=== PATIENT | female | born 1970 | race Caucasian/White ===

== ENCOUNTER 2016-07-06 07:22 | Day surgery (SDC) | payer OTHER ==
[~2016-07-06] VITALS: Ht 170.2 cm; Wt 85.3 kg
[~2016-07-06 07:22] MED LIST: CHERATUSSIN AC473 ML PO; MOTRIN800 MG PO; NAPROXEN500 MG PO; PREDNISONE10 M1 PO; SPIRIVA RESPIMAT4 GM IH; TESSALON200 MG PO; VENTOLIN HFA18 GM IH; ZANTAC150 MG PO
[2016-07-06 07:48] VITALS: BP 111/68
[2016-07-06 08:57] LABS: METH RESISTANT S AUREUS PCR POSITIVE (NEGATIVE)
[2016-07-06 08:58] LABS: PROBE CHECK PASS
[2016-07-06] MEDS ORDERED: PERCOCET 5/31 TABLET PO (12:20)
[2016-07-06 14:39] VITALS: BP 111/68
[2016-07-06 15:35] VITALS: BP 112/70
== END 2016-07-06 16:00 | disposition home or self-care (01) ==
LOC: SDC 07:22
PROVIDERS: Surgery
DX: K40.90 Unilateral inguinal hernia, without obstruction or gangrene, not specified as recurrent (principal); K43.2 Incisional hernia without obstruction or gangrene; J44.9 Chronic obstructive pulmonary disease, unspecified; B18.2 Chronic viral hepatitis C; F17.200 Nicotine dependence, unspecified, uncomplicated; Z82.5 Family history of asthma and other chronic lower respiratory diseases; Z83.3 Family history of diabetes mellitus; Z83.49 Family history of other endocrine, nutritional and metabolic diseases
CPT/HCPCS: 87641; 88302; C1727; C1781; J0131; J0690; J1100; J1170; J2250; J2710; J2765; J3010; J3370

== ENCOUNTER 2016-07-24 18:28 | Emergency (ER) | payer OTHER ==
[~2016-07-24] VITALS: Ht 175.3 cm; Wt 81.2 kg
[~2016-07-24 18:28] MED LIST changes: +PERCOCET 5/31 TABLET PO
[2016-07-24 19:18] LABS: HEMATOCRIT 41.7 % (36.0-46.0); MCH 30.5 PG (29.0-34.0); MCHC 33.3 G/DL (30.0-36.0); MEAN PLAT.VOLUME 9.8 uM^3 (9.5-12.4); RBC DIS.WIDTH-CV 12.4 % (11.8-14.6); RBC DIS.WIDTH-SD 40.9 % (39-53); RED BLOOD COUNT 4.56 M/uL (3.80-5.20)
[2016-07-24 19:19] LABS: MCV 91.4 FL (83-99); PLATELET COUNT 261 K/uL (156-360); WHITE BLOOD COUNT 8.6 K/uL (4.1-10.2)
[2016-07-24 19:26] LABS: CHLORIDE 105 mEq/L (99-109); POTASSIUM 3.9 mEq/L (3.7-5.4); SODIUM 138 mEq/L (136-147)
[2016-07-24 19:28] LABS: GLUCOSE 104 mg/dL (70-99)
[2016-07-24 19:29] LABS: ANION GAP 12 MEQ/L (2-14)
[2016-07-24 19:30] LABS: TOTAL BILIRUBIN 0.4 mg/dL (0.0-1.0)
[2016-07-24 19:31] LABS: ALKALINE PHOSPHATASE 89 IU/L (3-129)
[2016-07-24 19:32] LABS: GFR ESTIMATE (CALCULATED) > 59 mL/min/
[2016-07-24 19:33] LABS: UREA NITROGEN (BUN) 11 mg/dL (9-23)
[2016-07-24 19:42] LABS: QUANTITATIVE HCG < 4.0 MIU/ML
[2016-07-24 21:20] LABS: ADD MIUA? NO; BILIRUBIN NEGATIVE; BLOOD NEGATIVE; COLOR YELLOW ((YELLOW)); GLUCOSE (STRIP) NEGATIVE; KETONES 5; LEUKOCYTES NEGATIVE; NITRITE NEGATIVE; PROTEIN (STRIP) NEGATIVE; UCUL ADDED? NO; UROBILINOGEN 0.2 MG/DL (0.2-1.0)
[2016-07-24] MEDS ORDERED: BACTRIM,SEPT1 TABLET PO (21:21)
[2016-07-24] MEDS ORDERED: PERCOCET 5/31 TABLET PO (21:21)
[2016-07-24] MEDS ORDERED: FLAGYL500 MG PO (21:21)
[2016-07-24 21:48] VITALS: BP 126/81
== END 2016-07-24 21:50 | disposition home or self-care (01) ==
LOC: EME 18:28
DX: G89.18 Other acute postprocedural pain (principal); R10.9 Unspecified abdominal pain; K52.9 Noninfective gastroenteritis and colitis, unspecified; Z98.890 Other specified postprocedural states
CPT/HCPCS: 74177; 80053; 81003; 84702; 85027; 99281; 99284; J1885; J2270; J2405; J7030